=== PATIENT | female | born 1970 | race African-American/Black ===

== ENCOUNTER → 2016-06-14 | Outpatient (CLI) | payer OTHER ==
--- NOTE | ~2016-06-14 | US98 ---
[facility] A Service of [facility] RADIOLOGY TEXT RESULTS PATIENT: RUBI CLEMONS LOCATION: [facility] : 68 UNIT #: [id number] AGE: [address]: Liset Glaser APRN SEX: F ORDER DR: [id number] [facility] [address] [place], [place] [address] [id number] O MR#: [id number] Acc #: [id number] NAME: RUBI CLEMONS : 1970 SEX: F STUDY DATE/TIME: 06/14/2016 10:59 UNIT: [facility] ROOM: STUDY DESCRIPTION: US Pelvic Non-OB Complete Attending Physician: Liset Glaser A.P.R.N. Referring Physician: Liset Glaser A.P.R.N. Ordering Physician: Liset Glaser A.P.R.N. Primary Care Physician: Liset Glaser A.P.R.N. MEDICAL IMAGING REPORT This report is preliminary unless electronic signature is present EXAM Pelvic ultrasound. INDICATION Pelvic pain for the past 2 years. PROCEDURE Coronel-scale and Doppler imaging of the pelvis, transabdominal and transvaginal approach. COMPARISON None FINDINGS Uterus anteverted and measures 8.3 x 5.3 x 5.5 cm. Endometrium measures approximately 6 mm. Left ovary measures 2.8 x 2.2 x 2.8 cm. The right ovary measures 2.7 x 1.8 x 2.4 cm. No pelvic fluid. IMPRESSION Negative pelvic ultrasound. Dictated by... Mati Garcia M.D. THIS IS AN ELECTRONICALLY VERIFIED REPORT Mati Garcia M.D. at 06/16/2016 6:52 AM GIANA/[place] TD: 06/15/2016 10:13 JOB #: [id number] [facility] A Service [facility] RADIOLOGY TEXT RESULTS PATIENT: RUBI CLEMONS [facility] #: [id number] : 68 UNIT #: [id number] AGE: [address]: Liset Glaser APRN SEX: F ORDER DR: MEDICAL IMAGING REPORT Page 1 of 1 COPY
--- NOTE | ~2016-06-14 | US6 ---
[facility] A Service of [facility] RADIOLOGY TEXT RESULTS PATIENT: RUBI CLEMONS LOCATION: [facility] : 68 UNIT #: [id number] AGE: [address]: Liset Glaser APRN SEX: F ORDER DR: [id number] [facility] [address] [place], [place] [address] [id number] O MR#: [id number] Acc #: [id number] NAME: RUBI CLEMONS : 1970 SEX: F STUDY DATE/TIME: 06/14/2016 9:50 UNIT: [facility] ROOM: STUDY DESCRIPTION: US Abdominal Limited Attending Physician: Liset Glaser A.P.R.N. Referring Physician: Liset Glaser A.P.R.N. Ordering Physician: Liset Glaser A.P.R.N. Primary Care Physician: Liset Glaser A.P.R.N. MEDICAL IMAGING REPORT This report is preliminary unless electronic signature is present EXAM Right upper quadrant ultrasound. INDICTIONS Epigastric pain for 2 years ever since her appendix was removed. TECHNIQUE Coronel-scale and color Doppler sonographic images were obtained through the right upper quadrant. FINDINGS The visualized portions of the pancreas appear unremarkable. Main portal vein is patent with hepatopetal flow. The liver is homogeneous in echotexture with no focal hepatic lesions seen. There is no intra or extrahepatic biliary dilatation. No stones or sludge are seen within the gallbladder and there is no gallbladder wall thickening or pericholecystic fluid. Right kidney does not contain any solid or cystic renal masses and there is no hydronephrosis. IMPRESSION No acute findings to account for the patient's symptomatology. Solid organs appear unremarkable as does the gallbladder. Dictated by... Karen Roca M.D. THIS IS AN ELECTRONICALLY VERIFIED REPORT Karen Roca M.D. at 06/15/2016 12:22 PM AFF/luis carlos TD: 06/14/2016 13:43 JOB #: [id number] [facility] A Service of [facility] RADIOLOGY TEXT RESULTS PATIENT: RUBI CLEMONS [id number] [birth year] UNIT #: [id number] AGE: [address]: Liset Glaser APRN SEX: F ORDER DR: MEDICAL IMAGING REPORT Page 1 of 1 COPY
== END | disposition home or self-care (01) ==
LOC: CGUS 09:02
DX: R10.13 Epigastric pain (principal)
CPT/HCPCS: 76705; 76830; 76856

== ENCOUNTER → 2016-11-15 | Outpatient (CLI) | payer OTHER ==
--- NOTE | ~2016-11-15 | CT2 ---
[facility] A Service of [facility] RADIOLOGY TEXT RESULTS PATIENT: DUSTIN CLEMONS LOCATION: [facility] : 68 UNIT #: [id number] AGE: [address]: Liset Glaser APRN SEX: F ORDER DR: [id number] [facility] [address] [place] [address]. [place], [place] [address] [id number] O MR#: [id number] Acc #: [id number] NAME: DUSTIN CLEMONS : 1970 SEX: F STUDY DATE/TIME: 11/15/2016 13:01 UNIT: [facility] ROOM: STUDY DESCRIPTION: CT Abd and Pelv W Cont Attending Physician: Liset Glaser A.P.R.N. Referring Physician: Liset Glaser A.P.R.N. Ordering Physician: Liset Glaser A.P.R.N. Primary Care Physician: Liset Glaser A.P.R.N. MEDICAL IMAGING REPORT This report is preliminary unless electronic signature is present EXAM CT abdomen and pelvis with contrast INDICATIONS Menstrual-type abdominal and pelvic pain and cramping, monthly since February of 2016. However, patient reports no menstrual periods during this time. Generalized abdominal bloating. TECHNIQUE Contrast-enhanced CT of the abdomen and pelvis. This CT exam was performed with one or more of the following radiation dose reduction techniques: automatic exposure control, adjustment of mA and/or kV according to patient size, and iterative reconstruction. COMPARISON None. FINDINGS ABDOMEN WITH CONTRAST: Included lung bases are clear. The liver, spleen, kidneys, adrenal glands, pancreas, gallbladder unremarkable. The bowel loops are non-dilated. PELVIS WITH CONTRAST: Uterus is present. No pelvic mass or fluid. No aggressive appearing bone lesion. IMPRESSION No acute findings in the abdomen or pelvis. No finding to explain the patient's symptoms. [facility] A Service [facility] RADIOLOGY TEXT RESULTS PATIENT: DUSTIN CLEMONS [facility] 68 UNIT #: [id number] AGE: [address]: Liset Glaser APRN SEX: F ORDER DR: Dictated by... Mati Garcia M.D. THIS IS AN ELECTRONICALLY VERIFIED REPORT Mati Garcia M.D. at 11/17/2016 7:03 AM EED/pcl TD: 11/15/2016 23:38 JOB #: [id number] MEDICAL IMAGING REPORT Page 1 of 1 COPY
== END | disposition home or self-care (01) ==
LOC: CCAT 11:00
DX: R10.13 Epigastric pain (principal)
CPT/HCPCS: 74177; Q9967